=== PATIENT | female | born 2000 | race Two or more races ===

== ENCOUNTER 2020-12-18 13:15 | Emergency (ER) | payer BC ==
[~2020-12-18] VITALS: Ht 157.5 cm; Wt 51.7 kg
--- NOTE | 2020-12-18 13:25 | NUR ---
DIFFUSE ABD PAIN SINCE YESTERDAY -N/V/D. PT A/OX4. TOLERATING R/A WELL. TELE MONITOR AND POX ON.
--- NOTE | 2020-12-18 13:41 | NUR ---
DENIZ WEI AT PT'S BEDSIDE
[2020-12-18 13:57] LABS: BASOPHILS % (AUTO) 0.5 % (0.0-2.0); EOSINOPHILS % (AUTO) 1.1 % (0.0-6.0); HEMATOCRIT 36 % (33-45); HEMOGLOBIN 11.6 g/dL (11.5-14.8); LYMPHOCYTES # (AUTO) 1.7 K/uL (0.8-4.8); LYMPHOCYTES % (AUTO) 46.5 % (20.0-44.0); MEAN CORPUSCULAR HGB CONC 32 g/dl (31.0-36.0); MEAN CORPUSCULAR VOLUME 82 fL (82-100); MONOCYTES # (AUTO) 0.4 K/uL (0.1-1.30); MONOCYTES % (AUTO) 10.1 % (2.0-12.0); NEUTROPHILS # (AUTO) 1.5 K/uL (1.8-8.9); NEUTROPHILS % (AUTO) 41.8 % (43.0-81.0); PLATELET COUNT (AUTO) 228 K/uL (150-450); RED BLOOD CELL COUNT(AUTO) 4.41 MIL/uL (4.0-5.2); WHITE BLOOD COUNT (AUTO) 3.7 K/uL (4.3-11.0)
[2020-12-18 14:35] LABS: CREATININE 0.6 mg/dL (0.6-1.3); POTASSIUM 4.7 mmol/L (3.5-5.1)
[2020-12-18 14:39] LABS: BILIRUBIN,URINE Negative (NEGATIVE); COLOR,URINE YELLOW (YELLOW); LEUKOCYTE ESTERASE ,URINE Negative (NEGATIVE); NITRITE, URINE Negative (NEGATIVE); PROTEIN,URINE Negative (NEGATIVE); UGLUCOSE Negative (NEGATIVE); UROBILINOGEN,URINE 0.2 EU/dL (0.2)
[2020-12-18 14:41] LABS: ALBUMIN 4.1 g/dL (3.4-5.0); BILIRUBIN,DIRECT 0.1 mg/dL (0.0-0.2); BILIRUBIN,TOTAL 0.1 mg/dL (0.2-1.0); TOTAL PROTEIN, SERUM 7.8 g/dL (6.4-8.2)
--- NOTE | 2020-12-18 15:30 | NUR ---
pt was taken to ct
[2020-12-18 16:05] VITALS: BP 109/60
--- NOTE | 2020-12-18 16:07 | NUR ---
PT ct ruled out appendicitis. Dr James put in discharge orders.
[2020-12-18 16:58] LABS: EOSINOPHILS % (MANUAL) 2 % (0-4); LYMPHOCYTES % (MANUAL) 48 % (16-48); MONOCYTES % (MANUAL) 9 % (0-11.0); NEUTROPHILS % (MANUAL) 41 (42-76)
== END 2020-12-18 16:08 | disposition home or self-care (01) ==
LOC: ER 13:18
DX: R10.84 Generalized abdominal pain (principal); K85.90 Acute pancreatitis without necrosis or infection, unspecified
CPT/HCPCS: 36415; 80048-TC; 80076-TC; 83690-TC; 84703-TC; 85025-TC

== ENCOUNTER 2021-07-15 16:52 | Emergency (ER) | payer BC ==
[~2021-07-15] VITALS: Ht 157.5 cm; Wt 51.3 kg
--- NOTE | 2021-07-15 17:10 | NUR ---
BIB SELF C/O SOB X 5 DAYS 100% ON RA. PLACED COMFORTABLY IN BED. VITALS CHECKED.
--- NOTE | 2021-07-15 17:23 | NUR ---
SEEN AND EXAMINED BY .
[2021-07-15] MEDS ORDERED: ACETAMINOPHEN ES 500 MG TABLET PO ONE (17:30)
--- NOTE | 2021-07-15 17:30 | NUR ---
CXR DONE AT BEDSIDE
[2021-07-15] MEDS ORDERED: ACETAMINOPHEN ES 500 MG TABLET ONE (17:34)
--- NOTE | 2021-07-15 17:38 | NUR ---
EKG DONE AT BEDSIDE
[2021-07-15 18:06] LABS: BASOPHILS % (AUTO) 0.5 % (0.0-2.0); EOSINOPHILS % (AUTO) 0.2 % (0.0-6.0); HEMATOCRIT 34 % (33-45); LYMPHOCYTES # (AUTO) 1.8 K/uL (0.8-4.8); LYMPHOCYTES % (AUTO) 42.9 % (20.0-44.0); MEAN CORPUSCULAR HGB CONC 33 g/dl (31.0-36.0); MEAN CORPUSCULAR VOLUME 80 fL (82-100); MONOCYTES # (AUTO) 0.3 K/uL (0.1-1.30); MONOCYTES % (AUTO) 6.7 % (2.0-12.0); NEUTROPHILS # (AUTO) 2.1 K/uL (1.8-8.9); NEUTROPHILS % (AUTO) 49.7 % (43.0-81.0); PLATELET COUNT (AUTO) 265 K/uL (150-450); RED BLOOD CELL COUNT(AUTO) 4.21 MIL/uL (4.0-5.2); WHITE BLOOD COUNT (AUTO) 4.2 K/uL (4.3-11.0)
[2021-07-15 18:24] LABS: CALCIUM, SERUM 8.8 mg/dL (8.5-10.1); CARBON DIOXIDE 29 mmol/L (21-32); CHLORIDE 103 mmol/L (98-107); CREATININE 0.6 mg/dL (0.6-1.3); GLUCOSE 93 mg/dL (74-106); POTASSIUM 3.8 mmol/L (3.5-5.1); SODIUM SERUM 138 mmol/L (136-145); UREA NITROGEN, BLOOD 8 mg/dL (7-18)
[2021-07-15] MEDS ORDERED: IV NS 0.9% 250 ML IV ONE (18:37)
[2021-07-15] MEDS ORDERED: IOHEXOL-350 100 ML VIAL IV ONE (18:37)
--- NOTE | 2021-07-15 18:54 | NUR ---
URINE SPECIMEN SENT TO LAB
--- NOTE | 2021-07-15 19:46 | NUR ---
IN NURSING ASSESSMENT. I ACCIDENTALLY MADE AN ERROR OF TYPING PATIENT IS LEGALLY BLIND. PATIENT HAS NO VISION ISSUES.
--- NOTE | 2021-07-15 20:00 | NUR ---
IV CANNULA REMOVED
--- NOTE | 2021-07-15 20:14 | NUR ---
Patient discharged to home in stable condition. Written and verbal after care instructions given. Patient verbalizes understanding of instruction.
[2021-07-15 20:15] VITALS: BP 114/71
== END 2021-07-15 20:15 | disposition home or self-care (01) ==
LOC: ER 16:57
DX: R07.89 Other chest pain (principal); R06.02 Shortness of breath
CPT/HCPCS: 36415; 71045; 71275; 80048; 84484; 84703; 85025; 85378; 93005; 99285; J7050; Q9967

== ENCOUNTER 2023-11-04 20:56 | Emergency (ER) | payer BC ==
[~2023-11-04] VITALS: Ht 160 cm; Wt 61.2 kg
[2023-11-04] MEDS ORDERED: ONDANSETRON HCL/PF 4 MG/2 ML VIAL ONE (21:19)
[2023-11-04] MEDS ORDERED: KETOROLAC TROMETHAMINE INJ 30 MG/ML VIAL ONE (21:22)
[2023-11-04] MEDS: ONDANSETRON HCL/PF - ER 4 MG/2 ML VIAL IV ONE (21:25)
[2023-11-04] MEDS: IV NS 0.9% 1,000 ML IV ONE (21:25)
[2023-11-04 21:28] LABS: BASOPHILS % (AUTO) 0.5 % (0.0-2.0); EOSINOPHILS % (AUTO) 0.4 % (0.0-6.0); HEMATOCRIT 37 % (33-45); HEMOGLOBIN 12.2 g/dL (11.5-14.8); LYMPHOCYTES % (AUTO) 49.9 % (20.0-44.0); MEAN CORPUSCULAR HEMOGLOBIN 27 PG (26.0-33.0); MEAN CORPUSCULAR HGB CONC 33 g/dl (31.0-36.0); MEAN CORPUSCULAR VOLUME 81 fL (82-100); MONOCYTES # (AUTO) 0.5 K/uL (0.1-1.30); MONOCYTES % (AUTO) 7.5 % (2.0-12.0); NEUTROPHILS # (AUTO) 2.5 K/uL (1.8-8.9); NEUTROPHILS % (AUTO) 41.7 % (43.0-81.0); PLATELET COUNT (AUTO) 299 K/uL (150-450); RED BLOOD CELL COUNT(AUTO) 4.54 MIL/uL (4.0-5.2); RED CELL DISTRIBUTION WIDTH 16.7 % (11.5-15.0); WHITE BLOOD COUNT (AUTO) 6.1 K/uL (4.3-11.0)
[2023-11-04 21:31] LABS: APPEARANCE,URINE CLEAR (CLEAR); BILIRUBIN,URINE NEGATIVE (NEGATIVE); BLOOD, URINE TRACE-INTA Ery/uL (NEGATIVE); COLOR,URINE YELLOW (YELLOW); KETONES,URINE NEGATIVE (NEGATIVE); LEUKOCYTE ESTERASE ,URINE NEGATIVE (NEGATIVE); NITRITE, URINE NEGATIVE (NEGATIVE); PROTEIN,URINE NEGATIVE (NEGATIVE); UGLUCOSE NEGATIVE (NEGATIVE); UROBILINOGEN,URINE 0.2 EU/dL (0.2)
[2023-11-04 21:40] LABS: CALCIUM, SERUM 9.2 mg/dL (8.5-10.1); CREATININE 0.6 mg/dL (0.6-1.3); POTASSIUM 3.9 mmol/L (3.5-5.1)
[2023-11-04 21:42] LABS: PREGNANCY TEST URINE QUAL NEGATIVE (NEGATIVE)
[2023-11-04 21:47] LABS: ADD URINE CULTURE NO; BACTERIA,URINE 1+ /HPF (None Seen); RBC,URINE 0-2 /HPF (0-2)
[2023-11-04 21:48] LABS: ALBUMIN 4.4 g/dL (3.4-5.0); BILIRUBIN,TOTAL 0.2 mg/dL (0.2-1.0); TOTAL PROTEIN, SERUM 8.1 g/dL (6.4-8.2)
[2023-11-04] MEDS: KETOROLAC TROMETHAMINE INJ 30 MG/ML VIAL IV ONE (21:51)
[2023-11-04] MEDS ORDERED: NITR100C6 PO (23:23)
[2023-11-04 23:43] VITALS: BP 118/76; TEMP 98; O2SAT 99
== END 2023-11-04 23:43 | disposition home or self-care (01) ==
LOC: ER 20:58
DX: N39.0 Urinary tract infection, site not specified (principal)
CPT/HCPCS: 99285; 74176; 96374; 96361; 96375; 85025; 83690; 84703; 81001; 36415; 80053; J1885; J2405 ×2; J7030

== ENCOUNTER 2024-09-04 17:11 | Emergency (ER) | payer BC ==
[~2024-09-04] VITALS: Ht 157.5 cm; Wt 52.2 kg
[~2024-09-04 17:11] MED LIST: NITR100C6 PO
[2024-09-04] MEDS ORDERED: FAMOTIDINE/PF INJ 20 MG/2 ML VIAL IV ONE (18:42)
[2024-09-04] MEDS ORDERED: ONDANSETRON HCL/PF 4 MG/2 ML VIAL ONE (18:42)
[2024-09-04] MEDS: FAMOTIDINE/PF INJ 20 MG/2 ML VIAL IV ONE (18:58)
[2024-09-04] MEDS: IV NS 0.9% 1,000 ML BAG IV ONE (18:58)
[2024-09-04] MEDS: ONDANSETRON HCL/PF 4 MG/2 ML VIAL IVP ONE (18:59)
[2024-09-04] MEDS: KETOROLAC TROMETHAMINE INJ 30 MG/ML VIAL IV ONE (19:00)
[2024-09-04 19:13] LABS: PLATELET COUNT (AUTO) 276 K/uL (150-450); RED BLOOD CELL COUNT(AUTO) 4.38 MIL/uL (4.0-5.2); RED CELL DISTRIBUTION WIDTH 16.3 % (11.5-15.0); WHITE BLOOD COUNT (AUTO) 4.2 K/uL (4.3-11.0)
[2024-09-04 19:32] LABS: CALCIUM, SERUM 9.3 mg/dL (8.5-10.1); CREATININE 0.5 mg/dL (0.6-1.3); SODIUM SERUM 139.0 mmol/L (136-145); UREA NITROGEN, BLOOD 8.0 mg/dL (7-18)
[2024-09-04 19:38] LABS: ASPARTATE AMINOTRANSFERASE 17.0 U/L (15-37); TOTAL PROTEIN, SERUM 8.4 g/dL (6.4-8.2)
[2024-09-04] MEDS ORDERED: PANT20TA2 PO (20:39)
[2024-09-04 21:08] VITALS: BP 110/75; TEMP 98.1; O2SAT 100
== END 2024-09-04 21:08 | disposition home or self-care (01) ==
LOC: ER 17:17
DX: R10.84 Generalized abdominal pain (principal); R11.0 Nausea; R07.9 Chest pain, unspecified; R10.2 Pelvic and perineal pain; K58.9 Irritable bowel syndrome, unspecified
CPT/HCPCS: 99284; 96374; 96361; 96375; 85025; 80048; 83690; 80076; 36415; 84702; J1308; J2405; J7030